=== PATIENT | male | born 1960 | race Caucasian/White ===

== ENCOUNTER 2024-07-22 18:14 | Emergency (ER) | payer OTHER ==
[~2024-07-22] VITALS: Ht 180.3 cm; Wt 81.6 kg
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
[2024-07-22] MEDS: NEOMY SULF/BACITRA/POLYMYXIN B 1 EACH PACKET TP ONE (20:02)
[2024-07-22] MEDS: LIDOCAINE HCL 1% 20 ML VIAL INJ SCH (20:02)
[2024-07-22] MEDS ORDERED: MUPI22O TP (20:04)
[2024-07-22] MEDS ORDERED: CEPH500T PO (20:04)
[2024-07-22 20:16] VITALS: BP 142/92; PULSE 88; RESP 16; TEMP 98.2; O2SAT 98
== END 2024-07-22 20:19 | disposition home or self-care (01) ==
LOC: EDH 18:14
DX: S71.112A Laceration without foreign body, left thigh, initial encounter (principal); E78.00 Pure hypercholesterolemia, unspecified; Z90.49 Acquired absence of other specified parts of digestive tract; W26.0XXA Contact with knife, initial encounter; Y93.89 Activity, other specified; Y92.89 Other specified places as the place of occurrence of the external cause; Y99.8 Other external cause status
CPT/HCPCS: 12002; 99283